=== PATIENT | male | born 1975 | race Caucasian/White ===

== ENCOUNTER 2017-06-27 12:18 | Observation (INO) | payer OTHER ==
[2017-06-27 12:55] LABS: #Basophils 0.1 thou/uL (0.0-0.2); #Eosinphils 0.1 thou/uL (0.0-0.7); #Lymphocytes 2.4 thou/uL (1.20-3.40); #Monocytes 0.5 thou/uL (0.11-0.59); #Neutrophils 3.6 thou/uL (1.40-6.50); %Basophils 0.8 % (0.0-1.0); %Eosinophils 0.8 % (0.0-10.0); %Lymphocytes 36.8 % (21.0-51.0); %Monocytes 7.4 % (0.0-10.0); %Neutrophils 54.1 % (42.0-75.0); Hemoglobin 15.8 g/dL (14.0-18.0); Mean Corpuscular HGB CONC 34.9 g/dL (32.0-36.0); Mean Corpuscular Hemoglobin 30.3 pg (27.0-31.0); Mean Corpuscular Volume 86.8 fl (80.0-94.0); Mean Platelet Volume 8.2 fL (7.4-10.4); Platelet Count 160 thou/uL (130-400); RBC Distribution Width 11.4 % (11.5-14.5); Red Blood Cell (RBC) Count 5.21 mill/uL (4.70-6.10); White Blood Cell (WBC) Count 6.6 thou/uL (4.8-10.8)
[2017-06-27] MEDS ORDERED: Nitroglycerin 0.4 MG TAB (25 Tab Bottle) ONE (12:57)
[2017-06-27 13:04] LABS: Prothrombin Time 12.9 SEC (12.0-14.7)
[2017-06-27 13:07] LABS: ALT (SGPT) 73 U/L (8-55); AST (SGOT) 31 U/L (5-34); Albumin 4.5 g/dL (3.5-5.0); Alkaline Phosphatase 49 U/L (40-150); Anion Gap 14 mmol/L (10-20); BUN (Urea Nitrogen) 14 mg/dL (8.9-20.6); Bilirubin, Total 1.2 mg/dL (0.2-1.2); Calc. Creatinine Clearance 0 mL/min (70-130); Calcium 9.3 mg/dL (7.8-10.44); Carbon Dioxide 23 mmol/L (22-29); Chloride 107 mmol/L (98-107); Estimated GFR-MDRD Greater than 90; Globulin 2.7 g/dL (2.4-3.5); Glucose 111 mg/dL (70-105); Potassium 3.9 mmol/L (3.5-5.1); Protein, Total 7.2 g/dL (6.0-8.3); Sodium 140 mmol/L (136-145)
--- NOTE | 2017-06-27 13:08 | RAD ---
PORTABLE AP CHEST X-RAY: 06/27/2017 HISTORY: Chest pressure. Chest pain. COMPARISON: None available. FINDINGS: The cardiac silhouette and pulmonary vasculature are within normal limits. The lungs are clear. The osseous structures are intact. IMPRESSION: No acute cardiopulmonary process. POS: [facility]
[2017-06-27 13:10] LABS: Troponin I Less than 0.010 ng/mL (< 0.028)
[2017-06-27 15:32] LABS: Troponin I Less than 0.010 ng/mL (< 0.028)
[2017-06-27] MEDS ORDERED: Acetaminophen 325 MG TAB PO PRN ×2 (20:19→22:33)
[2017-06-27] MEDS ORDERED: Ondansetron HCl/PF 4 MG/2 ML Vial IVP PRN ×2 (20:19→22:33)
[2017-06-27] MEDS ORDERED: Ondansetron ODT 4 MG TAB SL PRN (20:19)
[2017-06-27 21:49] VITALS: BMI 32.1
--- NOTE | 2017-06-27 21:57 | PDOC.PN ---
- Subjective Encounter Start Date: 06/27/17 Encounter Start Time: 21:56 Patient seen and examined. - Objective MAR Reviewed: Yes Vital Signs & Weight: Vital Signs (12 hours) Temp Pulse Resp BP Pulse Ox 06/27/17 20:10 97.7 F 72 18 133/72 97 Weight Admit Weight 224 lb 3.2 oz Weight 224 lb 3.2 oz Result Diagrams: 06/27/17 12:45 06/27/17 12:45 Radiology Reviewed by me: Yes (CXR - No infiltrate) EKG Reviewed by me: Yes (SR, S1, Q3, T3 pattern) Phys Exam - Physical Examination Constitutional: NAD HEENT: PERRLA, moist MMs Neck: no nodes, no JVD Respiratory: no wheezing, no rales, no rhonchi, clear to auscultation bilateral Cardiovascular: RRR, no significant murmur, no rub no heaves/pulsations Gastrointestinal: soft, non-tender, no distention, positive bowel sounds Musculoskeletal: no edema, pulses present Neurological: non-focal, normal sensation, moves all 4 limbs Lymphatic: no nodes (neck) Psychiatric: A&O x 3 Skin: no rash Dx/Plan - Plan DVT proph w/SCDs Review of Systems - Review of Systems Constitutional: negative: fever, chills, sweats, weakness, malaise, other Eyes: negative: Pain, Vision Change, Conjunctivae Inflammation, Eyelid Inflammation, Redness, Other ENT: negative: Ear Pain, Ear Discharge, Nose Pain, Nose Discharge, Nose Congestion, Mouth Pain, Mouth Swelling, Throat Pain, Throat Swelling Respiratory: negative: Cough, Dry, Shortness of Breath, Hemoptysis, SOB with Excertion, Pleuritic Pain, Sputum, Wheezing Cardiovascular: chest pain. negative: palpitations, orthopnea, paroxysmal nocturnal dyspnea, edema, light headedness Gastrointestinal: negative: Nausea, Vomiting, Abdominal Pain, Diarrhea, Constipation, Melena, Hematochezia Genitourinary: negative: Dysuria, Frequency, Incontinence, Hematuria, Retention Musculoskeletal: negative: Neck Pain, Shoulder Pain, Arm Pain, Back Pain, Hand Pain, Leg Pain, Foot Pain Skin: negative: Rash, Lesions, [place], Bruising Neurological: negative: Weakness, Numbness, Incoordination, Change in Speech, Confusion, Seizures - Medications/Allergies Allergies/Adverse Reactions: Allergies Allergy/AdvReac Type Severity Reaction Status Date / Time No Known Allergies Allergy Verified 06/27/17 21:00 Medications: Current Medications Acetaminophen (Tylenol) 650 mg PO Q4H PRN PRN Reason: Headache/Fever or Pain Stop: 06/28/17 04:53 Ondansetron HCl (Zofran) 4 mg IVP Q6H PRN PRN Reason: Nausea/Vomiting Stop: 06/28/17 04:53 Ondansetron HCl (Zofran Odt) 4 mg SL Q6H PRN PRN Reason: Nausea/Vomiting Stop: 06/28/17 04:53
[2017-06-27] MEDS ORDERED: Calcium Carbonate 500 MG ChewTAB PO PRN (22:33)
[2017-06-27] MEDS ORDERED: Ondansetron ODT 4 MG TAB PO PRN (22:33)
[2017-06-27] MEDS ORDERED: Senokot 8.6 MG TAB PO PRN (22:33)
[2017-06-27] MEDS ORDERED: Nitroglycerin 0.4 MG TAB (25 Tab Bottle) PO PRN (22:33)
--- NOTE | 2017-06-28 06:48 | HP ---
DATE OF ADMISSION: 06/27/2017 PRIMARY CARE PHYSICIAN: Dr. Amador at [facility]. REASON FOR COMPLAINT: Chest discomfort. HISTORY OF PRESENT ILLNESS: Patient is a 41-year-old male with obesity presented to the emergency ro om with chest discomfort. The chest discomfort started around 9:00 a.m. while he was at work. He fe lt lightheaded and generally weak prior generally weak prior to the onset of chest discomfort. The c hest discomfort was pressure-like, more severe in the left upper chest. The pain got somewhat worse on lying down. He denies any nausea, vomiting or diaphoresis. He recently drove to [place]. He denies any cough or wheezing. He gets short of breath on moderate to severe activity. He denies an y previous chest pain workup. In the emergency room, his EKG showed incomplete right bundle branch block. Chest x-ray was negative . He received aspirin, IV fluids and sublingual nitroglycerin after which his pressure improved. PAST MEDICAL HISTORY: Reviewed with the patient and none. PAST SURGICAL HISTORY: Tonsillectomy and dental surgery. He also had some kind of surgery in the ne onatal period. Details unavailable. ALLERGIES: No known drug allergies. CURRENT HOME MEDICATIONS: Reviewed with the patient and none. SOCIAL HISTORY: Patient currently lives at home with his family. No smoking or drug use. Drinks al cohol socially. FAMILY HISTORY: Positive for diabetes mellitus type 2. REVIEW OF SYSTEMS: Please refer to progress note from today. PHYSICAL EXAMINATION: Please refer to progress note from today. LABORATORY FINDINGS: 1. Please refer to the progress notes. 2. D-dimer was negative. IMPRESSION AND PLAN: 1. Chest discomfort. Chest discomfort resolved after nitroglycerin. Symptoms are concerning for ca rdiac etiology. We will schedule exercise Cardiolite stress test in a.m. Continue aspirin. Check f asting lipid profile in a.m. D-dimer is negative. 2. Obesity with a BMI 32.2. Lifestyle modification was emphasized. 3. Family history of diabetes. Plan of care was discussed with the patient in detail. He stated understanding.
[2017-06-28] MEDS ORDERED: Aspirin 325 MG TAB PO SCH (09:00)
[2017-06-28 13:17] VITALS: BP 126/63; TEMP 98.2
--- NOTE | 2017-06-28 14:50 | NM ---
CARDIAC SPECT: HISTORY: A 41-year-old male with chest pain. TECHNIQUE: A myocardial perfusion scan was performed using the single-isotope 1-day protocol with Technetium 99m sestamibi. Nine mCi were injected intravenously for the rest exam followed by 33 mCi for the stress study. Exercise stress was monitored and interpreted by Dr. Diez. FINDINGS: Homogeneous tracer distribution was seen in the myocardial segments on stress and rest images without fixed or reversible defects. GATED SPECT LVEF: 73%. WALL MOTION EXAM: Normal. IMPRESSION: Normal myocardial perfusion scan. POS: OFF
--- NOTE | 2017-06-28 15:17 | DIS ---
DISCHARGE DATE: 06/28/2017 DISCHARGE DISPOSITION: Home. FOLLOWUP: With primary care physician, Dr. Amador in one week. DISCHARGE MEDICATIONS: None. ALLERGIES: No known drug allergies. The patient was seen on the day of discharge. Denies any new complaints. FOLLOWUP: Dr. Amador in one week. BRIEF HOSPITAL COURSE: Patient is a 41-year-old male who presented to the emergency room yesterday w ith chest discomfort while he was at work. Please refer to the history and physical dated 06/27/2017 for further details. The patient was admitted to the hospital with a diagnosis of chest discomfort, rule out acute coronar y syndrome. His serial cardiac enzymes were normal. His D-dimer was also negative. He underwent ex ercise Cardiolite stress test that was negative for reversible ischemia. Ejection fraction was 73% w ithout any wall motion abnormalities. He denies any chest discomfort at this time. FINAL DIAGNOSES: 1. Chest discomfort, acute coronary syndrome ruled out. 2. Negative Cardiolite stress test. 3. Obesity with a BMI of 32.2. 4. Family history of diabetes. Plan of care was discussed with the patient. He stated understanding.
== END 2017-06-28 15:45 | disposition home or self-care (01) ==
LOC: SCSER 12:18 → 2SW 17:02
PROVIDERS: ADMIT Internal Medicine; ATTEND Internal Medicine
DX: R07.89 Other chest pain (principal); E66.9 Obesity, unspecified; Z68.32 Body mass index [BMI] 32.0-32.9, adult; Z83.3 Family history of diabetes mellitus; Z98.890 Other specified postprocedural states
CPT/HCPCS: 36415; 71045; 78452; 80053; 82553; 84484; 85025; 85379; 85610; 93005; 93017; 96360; 96361; A9500; G0378